=== PATIENT | female | born 1980 | race Caucasian/White ===

== ENCOUNTER 2017-12-24 21:42 | Emergency (ER) | payer OTHER ==
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
[2017-12-24] MEDS ORDERED: NS 1,000 ML IV ONE (22:20)
[2017-12-24 23:29] VITALS: BP 98/64
== END 2017-12-24 23:32 | disposition home or self-care (01) ==
DX: S40.212A Abrasion of left shoulder, initial encounter (principal); S20.91XA Abrasion of unspecified parts of thorax, initial encounter; V18.9XXA Unspecified pedal cyclist injured in noncollision transport accident in traffic accident, initial encounter; Y92.410 Unspecified street and highway as the place of occurrence of the external cause; Y99.8 Other external cause status; Y93.89 Activity, other specified